=== PATIENT | male | born 1970 | race Hispanic/Latino ===

== ENCOUNTER 2017-03-06 20:19 | Emergency (ER) | payer SELFPAY ==
[2017-03-06] MEDS ORDERED: Ketorolac Tromethamine 30 MG/ML VIAL ONE (20:45)
--- NOTE | 2017-03-06 21:27 | RAD ---
EXAM: THREE VIEWS LUMBAR SPINE 03/06/17 HISTORY: Pain. COMPARISON: None. FINDINGS: Five lumbar type vertebral bodies. Vertebral body height is maintained. Disc space heights are preser greer. On malalignment. No fracture. IMPRESSION: Unremarkable lumbar spine three views. POS: [facility]
--- NOTE | 2017-03-06 21:30 | RAD ---
THREE VIEWS CERVICAL SPINE 03/06/17 HISTORY: Pain. COMPARISON: None. FINDINGS: On the open mouth projection, lateral masses of C1 and C2 articulate appropriately. Odontoid process is intact. On the AP projection, mild degenerative changes of facets. No malalignment. On the lateral projection, predental space is normal. Cervical spine is identified from the C1 verteb ral body to the C7 level. Evaluation of C7-T1 disc space level is limits. Mild loss of disc space hei ght at C5-C6. No evidence of a cervical spine fracture. No significant free vertebral soft tissue swe lling. IMPRESSION: No evidence of fracture. Limited evaluation of the cervicothoracic junction. POS: [facility]
== END 2017-03-06 21:45 | disposition home or self-care (01) ==
LOC: ERS 20:19
DX: M54.5 Low back pain (principal); M54.2 Cervicalgia
CPT/HCPCS: 72040; 72100; 96372; J1885

== ENCOUNTER 2017-03-27 12:20 | Emergency (ER) | payer SELFPAY ==
[2017-03-27 15:38] LABS: #Basophils 0.1 thou/uL (0.0-0.2); #Eosinphils 0.1 thou/uL (0.0-0.7); #Lymphocytes 3.3 thou/uL (1.20-3.40); #Monocytes 0.5 thou/uL (0.11-0.59); #Neutrophils 5.4 thou/uL (1.40-6.50); %Basophils 0.6 % (0.0-1.0); %Eosinophils 1.2 % (0.0-10.0); %Lymphocytes 35.5 % (21.0-51.0); %Monocytes 5.4 % (0.0-10.0); Hematocrit 46.6 % (42.0-52.0); Mean Platelet Volume 6.4 fL (7.4-10.4); Red Blood Cell (RBC) Count 5.24 mill/uL (4.70-6.10); White Blood Cell (WBC) Count 9.4 thou/uL (4.8-10.8)
[2017-03-27 15:59] LABS: ALT (SGPT) 113 U/L (8-55); AST (SGOT) 59 U/L (5-34); Alkaline Phosphatase 93 U/L (40-150); Anion Gap 15 mmol/L (10-20); BUN (Urea Nitrogen) 9 mg/dL (8.9-20.6); Bilirubin, Total 0.5 mg/dL (0.2-1.2); Calc. Creatinine Clearance 0 mL/min (70-130); Calcium 9.6 mg/dL (7.8-10.44); Carbon Dioxide 23 mmol/L (22-29); Chloride 104 mmol/L (98-107); Estimated GFR-MDRD Greater than 90; Globulin 3.2 g/dL (2.4-3.5); Protein, Total 7.6 g/dL (6.0-8.3)
[2017-03-27] MEDS ORDERED: CEFAZOLIN/Water 2 GM/20 ML SYRINGE ONE (16:29)
[2017-03-27] MEDS ORDERED: Lidocaine 1% (PF) 30 ML VIAL ONE (16:29)
[2017-03-27] MEDS ORDERED: Morphine 4 MG/ML VIAL ONE (16:32)
== END 2017-03-27 18:57 | disposition home or self-care (01) ==
LOC: ERS 12:20
DX: L02.416 Cutaneous abscess of left lower limb (principal); L03.116 Cellulitis of left lower limb
CPT/HCPCS: 10060; 36415; 80053; 85025; 96374; 96375; J2001; J2270

== ENCOUNTER 2017-03-29 11:43 | Emergency (ER) | payer SELFPAY ==
[2017-03-29 13:15] LABS: #Eosinphils 0.2 thou/uL (0.0-0.7); #Lymphocytes 2.9 thou/uL (1.20-3.40); #Monocytes 0.5 thou/uL (0.11-0.59); #Neutrophils 3.8 thou/uL (1.40-6.50); %Basophils 0.5 % (0.0-1.0); %Eosinophils 2.9 % (0.0-10.0); %Monocytes 6.1 % (0.0-10.0); %Neutrophils 51.5 % (42.0-75.0); Hemoglobin 15.1 g/dL (14.0-18.0); Mean Corpuscular HGB CONC 32.8 g/dL (32.0-36.0); Mean Corpuscular Hemoglobin 29.2 pg (27.0-31.0); Mean Corpuscular Volume 88.8 fl (80.0-94.0); Mean Platelet Volume 6.4 fL (7.4-10.4); Platelet Count 276 thou/uL (130-400); RBC Distribution Width 12.5 % (11.5-14.5); Red Blood Cell (RBC) Count 5.17 mill/uL (4.70-6.10); White Blood Cell (WBC) Count 7.4 thou/uL (4.8-10.8)
[2017-03-29 13:44] LABS: ALT (SGPT) 122 U/L (8-55); AST (SGOT) 77 U/L (5-34); Albumin 4.4 g/dL (3.5-5.0); Alkaline Phosphatase 81 U/L (40-150); Anion Gap 14 mmol/L (10-20); BUN (Urea Nitrogen) 12 mg/dL (8.9-20.6); Bilirubin, Total 0.5 mg/dL (0.2-1.2); Calc. Creatinine Clearance 0 mL/min (70-130); Calcium 9.7 mg/dL (7.8-10.44); Carbon Dioxide 23 mmol/L (22-29); Chloride 105 mmol/L (98-107); Estimated GFR-MDRD Greater than 90; Globulin 3.7 g/dL (2.4-3.5); Glucose 132 mg/dL (70-105); Potassium 4.6 mmol/L (3.5-5.1); Protein, Total 8.1 g/dL (6.0-8.3); Sodium 137 mmol/L (136-145)
[2017-03-29] MEDS ORDERED: HYDROcodone/Acetaminophen 5/325 mg Tablet ONE (14:10)
[2017-03-29] MEDS ORDERED: traMADol HCl 50 MG TAB ONE ×2 (14:10→14:15)
== END 2017-03-29 16:20 | disposition home or self-care (01) ==
LOC: ERS 11:43
DX: L03.116 Cellulitis of left lower limb (principal)
CPT/HCPCS: 80053; 85025; 96374; J0696

== ENCOUNTER 2019-09-13 20:42 | Emergency (ER) | payer OTHER, SELFPAY ==
[~2019-09-13 20:42] MED LIST: Iopamidol-370 76% 500 ML 1 ML ONE
[2019-09-13 21:22] LABS: #Eosinphils 0.1 thou/uL (0.0-0.7); #Lymphocytes 2.8 thou/uL (1.20-3.40); #Monocytes 0.5 thou/uL (0.11-0.59); #Neutrophils 2.4 thou/uL (1.40-6.50); %Basophils 0.6 % (0.0-1.0); %Eosinophils 2.4 % (0.0-10.0); %Lymphocytes 47.5 % (21.0-51.0); %Monocytes 7.8 % (0.0-10.0); %Neutrophils 41.9 % (42.0-75.0); Mean Corpuscular HGB CONC 32.6 g/dL (32.0-36.0); Mean Corpuscular Volume 85.8 fL (78.0-98.0); Mean Platelet Volume 6.8 fL (7.4-10.4); Platelet Count 252 thou/uL (130-400); RBC Distribution Width 12.6 % (11.5-14.5); Red Blood Cell (RBC) Count 5.37 mill/uL (4.70-6.10); White Blood Cell (WBC) Count 5.8 thou/uL (4.8-10.8)
[2019-09-13 21:32] LABS: Bilirubin Negative (Negative); Blood, Urine Negative (Negative); Clarity Clear (Clear); Glucose, Urine (Dipstick) Normal (Negative); Leukocyte Negative Leu/uL (Negative); Nitrite Negative (Negative); Protein, Urine (Dipstick) Negative (Neg-Trace); Urobilinogen Normal mg/dL (Less than 2)
[2019-09-13 21:46] LABS: ALT (SGPT) 162 U/L (8-55); AST (SGOT) 102 U/L (5-34); Albumin 4.3 g/dL (3.5-5.0); Alkaline Phosphatase 71 U/L (40-110); Anion Gap 16 mmol/L (10-20); BUN (Urea Nitrogen) 13 mg/dL (8.4-25.7); Bilirubin, Total 0.3 mg/dL (0.2-1.2); Calc. Creatinine Clearance 0 mL/min (70-130); Calcium 9.3 mg/dL (7.8-10.44); Carbon Dioxide 22 mmol/L (22-29); Chloride 104 mmol/L (98-107); Estimated GFR-MDRD Greater than 90; Glucose 117 mg/dL (70-105); Lipase 45 U/L (8-78); Potassium 4.3 mmol/L (3.5-5.1); Protein, Total 8.3 g/dL (6.0-8.3); Sodium 138 mmol/L (136-145)
[2019-09-13] MEDS ORDERED: Fentanyl 100 MCG/2 ML VIAL ONE (22:11)
--- NOTE | 2019-09-13 22:52 | CT ---
CT ABDOMEN WITH CONTRAST CT PELVIS WITH CONTRAST: DATE: 09/13/2019 10:38 PM HISTORY: 49-year-old male with umbilical abdominal pain COMPARISON: None TECHNIQUE: IV injection of iodinated contrast media: administered. Oral contrast media:Not administered FINDINGS: Fatty liver. No other hepatic abnormality. A few tiny gallstones near gallbladder neck. No excessive distention, mural thickening, or surrounding edema, involving gallbladder. Normal appendix, kidneys, abdominal aorta, pancreas, adrenals, spleen, and urinary bladder. Numerous diverticula at sigmoid colon and a few diverticula at descending colon. No diverticulitis. C olon is collapsed. No small bowel dilation, ascites, pneumoperitoneum, or pleural effusion. IMPRESSION: 1. Hepatic steatosis. 2. Minimal cholelithiasis. 3. No acute findings.
[2019-09-14 15:06] LABS: SARS-CoV-2 MS2 Positive; SARS-CoV-2 N Gene Positive; SARS-CoV-2 S Gene Positive; SARS-CoV-2 orf1ab Positive
== END 2019-09-14 00:58 | disposition home or self-care (01) ==
LOC: ERS 20:42
DX: U07.1 COVID-19 (principal); K21.9 Gastro-esophageal reflux disease without esophagitis; I10 Essential (primary) hypertension
CPT/HCPCS: 36415; 74177; 80053; 81003; 83690; 85025; 87635; 96374; J3010; Q9967; U0003